=== PATIENT | female | born 1960 | race Caucasian/White ===

== ENCOUNTER 2019-09-27 06:45 | Day surgery (SDC) | payer OTHER, SELFPAY ==
[~2019-09-27] VITALS: Ht 167.6 cm; Wt 83.0 kg
[~2019-09-27 06:45] MED LIST: SERT100T PO; [UNRECOGNIZED DRUG - CODE] PO
[2019-09-27] MEDS ORDERED: MEPERIDINE HCL/PF 100 MG/ML AMP ONE (07:49)
[2019-09-27] MEDS ORDERED: SIMETHICONE 40 MG/0.6 ML ML ONE (07:50)
[2019-09-27] MEDS: MIDAZOLAM HCL 5 MG/5 ML VIAL ONE ×4 (09:02→09:24)
[2019-09-27 12:13] VITALS: BP_SYST 95
== END 2019-09-27 10:45 | disposition home or self-care (01) ==
LOC: SDS 06:45 → SMU 06:45 → SDS 10:45
PROVIDERS: ATTEND Internal Medicine Gastroenterology
DX: Z12.11 Encounter for screening for malignant neoplasm of colon (principal); Z86.010 Personal history of colon polyps; K21.0 Gastro-esophageal reflux disease with esophagitis; K29.70 Gastritis, unspecified, without bleeding; K31.7 Polyp of stomach and duodenum; K57.30 Diverticulosis of large intestine without perforation or abscess without bleeding; K64.8 Other hemorrhoids; G47.30 Sleep apnea, unspecified; Z99.89 Dependence on other enabling machines and devices; E78.00 Pure hypercholesterolemia, unspecified; G47.33 Obstructive sleep apnea (adult) (pediatric); Z11.59 Encounter for screening for other viral diseases
CPT/HCPCS: 36415; 43239; 43249; 45378; 87081; 88305; 88312; 88313; 99152; 99153; G0378; J2175; J2250; U0003

== ENCOUNTER 2020-12-24 06:00 | Day surgery (SDC) | payer OTHER, SELFPAY ==
[~2020-12-24] VITALS: Ht 167.6 cm; Wt 85.7 kg
[2020-12-24] MEDS ORDERED: MEPERIDINE 100 MG INJ. 100 MG/ML VIAL ONE (07:00)
[2020-12-24] MEDS ORDERED: MIDAZOLAM HCL 5 MG/5 ML VIAL ONE (07:00)
[2020-12-24 09:31] VITALS: BP_SYST 137
== END 2020-12-24 08:55 | disposition home or self-care (01) ==
LOC: SMU 06:00 → SDS 06:00
PROVIDERS: ATTEND Internal Medicine Gastroenterology
DX: K21.00 Gastro-esophageal reflux disease with esophagitis, without bleeding (principal); R13.10 Dysphagia, unspecified; Z86.010 Personal history of colon polyps; K31.7 Polyp of stomach and duodenum; K29.50 Unspecified chronic gastritis without bleeding; Z79.899 Other long term (current) drug therapy; Z20.822 Contact with and (suspected) exposure to COVID-19
CPT/HCPCS: 43251; 88305; 88312; 88313; 99152; G0378; J2175; J2250; U0003

== ENCOUNTER 2023-11-09 07:47 | Day surgery (SDC) | payer OTHER ==
[~2023-11-09] VITALS: Ht 167.6 cm; Wt 86.2 kg
[2023-11-09] MEDS ORDERED: MIDAZOLAM HCL 5 MG/5 ML VIAL ONE ×2 (08:39→10:34)
[2023-11-09] MEDS ORDERED: MEPERIDINE 100 MG INJ. 100 MG/ML VIAL ONE (08:39)
[2023-11-09 11:05] VITALS: O2SAT 99
[2023-11-09 18:19] VITALS: BP_SYST 138; PULSE 88; RESP 16
== END 2023-11-09 11:32 | disposition home or self-care (01) ==
LOC: SMU 07:47 → SDS 07:47
PROVIDERS: ATTEND Internal Medicine Gastroenterology
DX: K21.9 Gastro-esophageal reflux disease without esophagitis (principal); K29.50 Unspecified chronic gastritis without bleeding; K29.80 Duodenitis without bleeding; K31.7 Polyp of stomach and duodenum; K44.9 Diaphragmatic hernia without obstruction or gangrene; F41.9 Anxiety disorder, unspecified; F32.A Depression, unspecified; E11.9 Type 2 diabetes mellitus without complications; E78.5 Hyperlipidemia, unspecified; K58.9 Irritable bowel syndrome, unspecified; Z79.84 Long term (current) use of oral hypoglycemic drugs; Z79.899 Other long term (current) drug therapy
CPT/HCPCS: 43239; 87081; 36415; 82948; 88305; 88312; 88313; G0378; J2250; J2175